=== PATIENT | male | born 1975 | race Caucasian/White ===

== ENCOUNTER 2021-05-11 02:08 | Emergency (ER) | payer SELFPAY ==
[2021-05-11] MEDS ORDERED: Nicotine 14 MG PATCH ONE (21:40)
[2021-05-12] MEDS ORDERED: Nicotine 14 MG PATCH ONE (12:41)
[2021-05-12] MEDS ORDERED: Acetaminophen 325 MG TAB ONE (23:00)
[2021-05-13] MEDS ORDERED: Ibuprofen 600 MG TAB PO PRN (13:41)
[2021-05-13] MEDS ORDERED: hydrOXYzine Pamoate 25 mg Capsule PO PRN (13:43)
[2021-05-13] MEDS ORDERED: Acetaminophen 325 MG TAB PO PRN (13:45)
[2021-05-13] MEDS ORDERED: traZODone HCl 50 MG TAB PO PRN (13:45)
[2021-05-13] MEDS ORDERED: Sodium Chloride 0.9% 1,000 ML IV SCH (13:45)
[2021-05-13] MEDS ORDERED: Nicotine 14 MG PATCH TOP SCH (14:00)
[2021-05-13] MEDS ORDERED: Ziprasidone 20 MG CAP PO SCH (21:00)
[2021-05-13] MEDS ORDERED: risperiDONE 1 MG TAB PO SCH (21:00)
[2021-05-14] MEDS ORDERED: OLANZapine 5 MG TAB PO SCH (09:00)
== END 2021-05-13 23:33 ==
LOC: ERS 02:08
DX: F23 Brief psychotic disorder (principal)
CPT/HCPCS: 36415; 82550; 99285